=== PATIENT | male | born 1970 | race Caucasian/White ===

== ENCOUNTER 2020-01-05 00:03 | Outpatient (CLI) | payer BC, SELFPAY ==
[2020-01-05 18:00] LABS: SARS-CoV-2 RNA PCR Negative
== END 2020-01-05 00:04 | disposition home or self-care (01) ==
LOC: ANHCOVIDDT 00:03
PROVIDERS: PCP Nurse Practitioner Family; Visit Provider Internal Medicine Gastroenterology
DX: Z01.812 Encounter for preprocedural laboratory examination (principal); Z20.828 Contact with and (suspected) exposure to other viral communicable diseases
CPT/HCPCS: 87635; C9803; U0003

== ENCOUNTER 2020-01-08 00:48 | Day surgery (SDC) | payer BC, SELFPAY ==
[2020-01-01 09:58] VITALS: BMI 32.3
[2020-01-08 08:18] VITALS: BP 137/87; PULSE 74; RESP 18; TEMP 36.7; O2SAT 97
[2020-01-08] MEDS: LACTATED RINGERS 1,000 ML 150 ML IV CONT (08:39)
--- NOTE | 2020-01-08 08:48 | WPDANESEPPF ---
Anes - Initial Pre Proc Eval Procedure: Operation Date: 01/08/20 09:30 Proposed Procedures p Screening Colonoscopy - Ritesh Montanez MD Date/Time: 01/08/20 08:48 Surgeon: Ritesh Montanez MD Pre Op Diagnosis: neoplasm screening Patient Data Age: 49 Gender: M Height: 6 ft Weight: 108.3 kg Last Vital Signs Temp 36.7 C 01/08/20 08:18 Pulse 74 01/08/20 08:18 Resp 18 01/08/20 08:18 BP 137/87 01/08/20 08:18 Pulse Ox 97 01/08/20 08:18 Allergies Allergy/AdvReac Type Severity Reaction Status Date / Time No Known Allergies Allergy Verified 01/08/20 08:24 Home Medications Medication Instructions Recorded Confirmed Type etanercept 50 mg/mL (1 mL) 50 mg SUB-Q WEEKLY 09/10/19 01/08/20 History subcutaneous pen injector leflunomide 20 mg tablet 20 mg PO DAILY 09/10/19 01/08/20 History levothyroxine 100 mcg tablet 100 mcg PO DAILY 09/10/19 01/08/20 History valacyclovir 500 mg tablet 500 mg PO DAILY 09/10/19 01/08/20 History dextroamphetamine-amphetamine 20 20 mg PO BID #60 tablet 12/11/19 01/08/20 Rx mg tablet omeprazole 20 mg capsule,delayed 20 mg PO DAILY #30 cap 12/11/19 01/08/20 Rx release acetaminophen [Tylenol] 1,000 mg PO BID 01/01/20 01/08/20 History ibuprofen 800 mg PO BID 01/01/20 01/08/20 History multivit with min-folic acid 1 mg PO DAILY 01/01/20 01/08/20 History [Adult One Daily Multivitamin] peg 3350-electrolytes 236 240 ml PO Q10M #4000 ml 01/03/20 Rx gram-22.74 gram-6.74 gram-5.86 gram solution Patient hx anesthesia problems: none Family hx anesthesia problems: none PMFSH Past Medical History Medical History Crohn's disease Fatty liver Genital herpes in men History of [place] thyroiditis Prediabetes Psoriatic arthritis Rotator cuff arthropathy of right shoulder Umbilical hernia Surgical History Surgical History H/O vasectomy History of appendectomy Family History Family History Father Hypertension Mother Lung cancer Social History Social History Smoking status: Never smoker Alcohol intake: current Substance use: never Substance use type: does not use Gender identity (if verbalized by the patient): Male Anes - Eval Final PreProcedure Day of Procedure 01/08/20 08:48 Patient weight: obese Heart: regular rate and rhythm Lungs: clear to auscultation Airway: Mallampati scale class II Neurological: alert and oriented Last oral intake: >/= 8 hours ASA classification: III Emergent: no Anesthetic plan: proceed Anesthesia type and monitoring: general GIVS and standard monitoring Informed Consent: The patient's anesthetic plan and its attendant risks and benefits were discussed with the patient/family/POA. Questions were solicited and answers provided to the satisfaction of the patient/family/POA.
[2020-01-08 09:35] VITALS: BP 112/68; PULSE 78; RESP 15; O2SAT 97
--- NOTE | 2020-01-08 09:37 | PM.HPGS ---
History of Present Illness History of Present Illness Consent: Risks, benefits, and alternatives have been discussed and questions answered. Patient agrees to proceed with procedure. Chief complaint: neoplasm screening Narrative: Paul Vail is a 49 year old male he had a colonoscopy 10 years ago when had blood in stools and colitis. currently no symptoms. Review of Systems Constitutional: Constitutional: Denies headache(s) and Denies weakness Eyes: Eyes: Denies blurry vision ENT: Reports Normal hearing present, Denies headache(s) and Denies neck pain Cardiovascular: Cardiovascular: Denies chest pain and Denies dyspnea Respiratory: Respiratory: Denies dyspnea Gastrointestinal: Gastrointestinal: Reports no additional gastrointestinal complaints Genitourinary: Genitourinary: Denies dysuria Musculoskeletal: Musculoskeletal: Reports arthralgias Integumentary/Breasts: Skin/Breast: Denies dry skin Neurologic: Reports Normal hearing present, Denies headache(s) and Denies weakness Psychiatric: Psychiatric: Denies anxiety Endocrine: Endocrine: Denies change in body appearance Hematologic/Lymphatic: Hematologic/Lymphatic: Denies easy bleeding Allergic/Immunologic: Allergic/Immunologic: Denies urticaria PMFSH Past Medical History Medical History Crohn's disease Fatty liver Genital herpes in men History of [place] thyroiditis Prediabetes Psoriatic arthritis Rotator cuff arthropathy of right shoulder Umbilical hernia Surgical History Surgical History H/O vasectomy History of appendectomy Family History Family History Father Hypertension Mother Lung cancer Social History Social History Smoking status: Never smoker Alcohol intake: current Substance use: never Substance use type: does not use Gender identity (if verbalized by the patient): Male Meds Home Medications and Allergies Home Medications Medication Instructions Recorded Confirmed Type etanercept 50 mg/mL (1 mL) 50 mg SUB-Q WEEKLY 09/10/19 01/08/20 History subcutaneous pen injector leflunomide 20 mg tablet 20 mg PO DAILY 09/10/19 01/08/20 History levothyroxine 100 mcg tablet 100 mcg PO DAILY 09/10/19 01/08/20 History valacyclovir 500 mg tablet 500 mg PO DAILY 09/10/19 01/08/20 History dextroamphetamine-amphetamine 20 20 mg PO BID #60 tablet 12/11/19 01/08/20 Rx mg tablet omeprazole 20 mg capsule,delayed 20 mg PO DAILY #30 cap 12/11/19 01/08/20 Rx release acetaminophen [Tylenol] 1,000 mg PO BID 01/01/20 01/08/20 History ibuprofen 800 mg PO BID 01/01/20 01/08/20 History multivit with min-folic acid 1 mg PO DAILY 01/01/20 01/08/20 History [Adult One Daily Multivitamin] peg 3350-electrolytes 236 240 ml PO Q10M #4000 ml 01/03/20 Rx gram-22.74 gram-6.74 gram-5.86 gram solution Allergies Allergy/AdvReac Type Severity Reaction Status Date / Time No Known Allergies Allergy Verified 01/08/20 08:24 Vital Signs Vital Signs - 24 hr 01/08/20 08:18 Temperature 98.0 F Pulse Rate 74 Respiratory Rate 18 Blood Pressure 137/87 Pulse Oximetry 97 Exam Const: General: comfortable and no acute distress HENMT: General nose exam: Normal nares present Eyes: General: appearance normal, both eyes and all related structures Neck: Neck: no JVD Resp: Auscultation: clear to auscultation bilaterally Cardio: Rate: regular rate Rhythm: regular rhythm GI: Inspection: non-distended GI Palp: Yes Soft to palpation Skin: General skin exam: normal color Neuro: General: gait normal Speech: normal speech Extrem: General: normal to inspection Psych: Mental Status: mental status grossly normal Assessment and Plan Assessment and plan (1) Colon cancer screening:
[2020-01-08 09:45] VITALS: BP 120/76; PULSE 67; RESP 12; O2SAT 95
[2020-01-08 09:55] VITALS: BP 127/84; PULSE 63; RESP 12; O2SAT 97
== END 2020-01-08 10:10 | disposition home or self-care (01) ==
PROVIDERS: PCP Nurse Practitioner Family; Visit Provider Internal Medicine Gastroenterology
PROC: 0DJD8ZZ Inspection of Lower Intestinal Tract, Via Natural or Artificial Opening Endoscopic (ICD-10-PCS; CPT 45378; principal; 2020-01-08 09:30)
DX: Z12.11 Encounter for screening for malignant neoplasm of colon (principal); K64.0 First degree hemorrhoids; K76.0 Fatty (change of) liver, not elsewhere classified; L40.50 Arthropathic psoriasis, unspecified; K50.90 Crohn's disease, unspecified, without complications; R73.03 Prediabetes; B00.9 Herpesviral infection, unspecified; E66.9 Obesity, unspecified; Z68.32 Body mass index [BMI] 32.0-32.9, adult
CPT/HCPCS: 45378; J2001; J2704; J7120

== ENCOUNTER 2020-02-26 09:49 | Outpatient (CLI) | payer BC, SELFPAY ==
--- NOTE | 2020-02-26 09:58 | ECG_ITS ---
Measurements Intervals [place] Rate: 64 P: 6 MA: 169 QRS: -14 QRSD: 85 T: 9 QT: 378 QTc: 391 Interpretive Statements SINUS RHYTHM VOLTAGE CRITERIA FOR LVH ST ELEVATION IN ANTERIOR LEADS- PROBABLY EARLY REPOLARIZATION BORDERLINE T WAVE ABNORMALITY- INFERIOR LEADS BORDERLINE ECG Electronically Signed On 02-26-2020 10:49:49 CDT by Sachin Montejo D.O.
== END 2020-02-26 09:50 | disposition home or self-care (01) ==
PROVIDERS: PCP Nurse Practitioner Family; Visit Provider Nurse Practitioner Family
DX: R61 Generalized hyperhidrosis (principal); R94.31 Abnormal electrocardiogram [ECG] [EKG]
CPT/HCPCS: 93005

== ENCOUNTER 2020-03-24 16:19 | Outpatient (CLI) | payer BC, SELFPAY ==
--- NOTE | 2020-03-27 12:23 | WPDHOLTEREM ---
Holter/Event Monitor Holter/Event Monitor Date of procedure: 03/24/20 Procedure Type: 24 hour holter monitor Indications: Abnormal EKG Conclusion: 1. 24 hour holter monitor on 03/24/20. 2. Underlying rhythm is sinus rhythm. HR range 52-125 bpm; average HR 80 bpm. 3. There are 18 premature supraventricular complexes. No supraventricular tachycardia. 4. There are 24 premature ventricular complexes, 1 ventricular couplet and 1 ventricular triplet. No ventricular tachycardia. 5. No sinoatrial or atrioventricular blocks. No significant pauses greater than 2 seconds. 6. No symptoms available for correlation.
== END 2020-03-24 16:20 | disposition home or self-care (01) ==
PROVIDERS: PCP Nurse Practitioner Family; Visit Provider Nurse Practitioner Family
DX: R94.31 Abnormal electrocardiogram [ECG] [EKG] (principal)
CPT/HCPCS: 93225; 93226

== ENCOUNTER 2020-04-07 13:23 | Outpatient (CLI) | payer BC, SELFPAY ==
--- NOTE | 2020-04-07 13:43 | ECHO_ITS ---
Patient Info Name: Paul Vail Age: 49 years : 1970 Gender: Male Ht: 72 in Wt: 240 lbs BSA: 2.38 m2 HR: 73 bpm BP: 156 / 90 mmHg Technical Quality: Fair Exam Date: 04/07/2020 1:58 PM Exam Location: [facility] Patient Status: Outpatient Admit Date: 04/07/2020 Staff Ordering Physician: Sonal Andrew NP Shade Bander: Naomi Gee RDCS Attending Provider: Sonal Andrew NP Referring Physician: Kamran GREEN; Exam Type: CA echo doppler color flow Study Info Indications - abn ekg Complete two-dimensional, color flow and Doppler transthoracic echocardiogram is performed. Summary 1. Complete two-dimensional, color flow and Doppler transthoracic echocardiogram is performed. 2. Normal LV size, mild LVH, normal LV systolic function, EF 65-70%. Normal diastolic function. No significant valvular abnormality. Trivial TR, RVSP 32 mmHg. Left Ventricle Left ventricular chamber dimension is normal. Left ventricular systolic function is normal, estimated at 65-70%. There is mildly increased left ventricular wall thickness. Left ventricular septal wall motion is normal. The left ventricular diastolic function is normal. Right Ventricle Right ventricular chamber dimension is normal. Right ventricular systolic function is normal. Left Atria Left atrial chamber dimension is normal. Right Atria Right atrial chamber dimension is normal. Aortic Valve There is no aortic valve stenosis. There is no aortic valve regurgitation. Pulmonic Valve The pulmonic valve is normal. There is trace pulmonic regurgitation. Mitral Valve The mitral valve has normal leaflets. There is no mitral valve stenosis. There is no mitral valve regurgitation. Tricuspid Valve The tricuspid valve leaflets are normal. There is trace tricuspid valve regurgitation. No pulmonary hypertension, estimated pulmonary arterial systolic pressure is 32 mmHg. Pericardium/Pleural The pericardium appears normal. There is no pericardial effusion. Inferior Vena Cava Normal inferior vena cava with >50% collapse upon inspiration consistent with normal right atrial pressure, 10 mmHg. Aorta The aortic root size at the sinus of Valsalva is normal. The prox ascending aorta size is normal. Left Ventricular Outflow Tract Name Value Normal LVOT 2D LVOT Diameter 2.1 cm LVOT Doppler LVOT Peak Gradient 5 mmHg LVOT Mean Gradient 3 mmHg LVOT VTI 20 cm LVOT VTI/AV VTI Ratio 0.9 LVOT Stroke Volume 72 ml LVOT CO 17.0 l/min LVOT CI 7.1 l/min/m2 Pulmonic Valve Name Value Normal PV Doppler PV Peak Gradient 3 mmHg Klaus
== END 2020-04-07 13:24 | disposition home or self-care (01) ==
PROVIDERS: PCP Family Medicine; Visit Provider Nurse Practitioner Family
DX: R94.31 Abnormal electrocardiogram [ECG] [EKG] (principal)
CPT/HCPCS: 93306

== ENCOUNTER 2020-04-21 10:41 | Outpatient (CLI) | payer BC, SELFPAY ==
--- NOTE | 2020-04-21 10:48 | EST_ITS ---
Patient Info Name: Paul Vail Age: 49 years : 1970 Gender: Male Ht: 72 in Wt: 240 lbs BSA: 2.38 m2 Exam Date: 04/21/2020 11:26 AM Exam Location: [facility] Stress Patient Status: Outpatient Admit Date: 04/21/2020 Staff Ordering Physician: Sonal Andrew NP Attending Provider: SACHIN CAO DO Exercise Technologist: Hiral Bradley RDCS Exercise Physician: Sachin Cao DO Exam Type: CA stress test treadmill Study Info Indications I49.1 - Atrial premature depolarization I49.3 - Ventricular premature depolarization R94.31 - Abnormal electrocardiogram ECG EKG A treadmill exercise stress test was performed. Summary 1. 1. Negative Car exercise stress test for ischemic ST changes by ECG criteria. 2. 2. Good functional capacity, achieving 10 METs of workload. 3. 3. Appropriate HR response to exercise. 4. 4. Appropriate HR recovery at 1 minute post exercise. 5. 5. No imaging with stress testing. 6. 6. Patient informed of the above results. Protocol: Car Stress ECG Details Stage: REST Duration (min): 5 min : 22 sec Speed (mph): 0.0 Grade (%): 0 HR (bpm): 70 SBP (mmHg): 130 DBP (mmHg): 87 METS: --- Stage: REST Duration (min): 10 min : 30 sec Speed (mph): 0.0 Grade (%): 0 HR (bpm): 95 SBP (mmHg): 130 DBP (mmHg): 87 METS: --- Stage: STAGE 1 Duration (min): 1 min : 0 sec Speed (mph): 1.7 Grade (%): 10 HR (bpm): 105 SBP (mmHg): 130 DBP (mmHg): 87 METS: --- Stage: STAGE 1 Duration (min): 2 min : 0 sec Speed (mph): 1.7 Grade (%): 10 HR (bpm): 119 SBP (mmHg): 130 DBP (mmHg): 87 METS: --- Stage: STAGE 1 Duration (min): 3 min : 0 sec Speed (mph): 1.7 Grade (%): 10 HR (bpm): 116 SBP (mmHg): 174 DBP (mmHg): 85 METS: --- Stage: STAGE 2 Duration (min): 1 min : 0 sec Speed (mph): 2.5 Grade (%): 12 HR (bpm): 130 SBP (mmHg): 174 DBP (mmHg): 85 METS: --- Stage: STAGE 2 Duration (min): 2 min : 0 sec Speed (mph): 2.5 Grade (%): 12 HR (bpm): 142 SBP (mmHg): 193 DBP (mmHg): 83 METS: --- Stage: STAGE 2 Duration (min): 3 min : 0 sec Speed (mph): 2.5 Grade (%): 12 HR (bpm): 146 SBP (mmHg): 193 DBP (mmHg): 83 METS: --- Stage: STAGE 3 Duration (min): 1 min : 0 sec Speed (mph): 3.4 Grade (%): 14 HR (bpm): 157 SBP (mmHg): 206 DBP (mmHg): 85 METS: --- Stage: STAGE 3 Duration (min): 2 min : 0 sec Speed (mph): 3.4 Grade (%): 14 HR (bpm): 161 SBP (mmHg): 206 DBP (mmHg): 85 METS: --- Stage: STAGE 3 Duration (min): 3 min : 0 sec Speed (mph): 3.4 Grade (%): 14 HR (bpm): 164 SBP (mmHg): 211 DBP (mmHg): 84 METS: --- Stage: RECOVERY Duration (min): 0 min : 59 sec Speed (mph): 0.0 Grade (%): 0 HR (bpm): 149 SBP (mmHg): 204 DBP (mmHg): 76 METS: ---
== END 2020-04-21 10:42 | disposition home or self-care (01) ==
PROVIDERS: PCP Family Medicine; Visit Provider Nurse Practitioner Family
DX: I49.1 Atrial premature depolarization (principal); I49.3 Ventricular premature depolarization; R94.39 Abnormal result of other cardiovascular function study
CPT/HCPCS: 93017

== ENCOUNTER 2020-06-20 21:39 | Emergency (ER) | payer BC, SELFPAY ==
--- NOTE | ~2020-06-20 | XR_ITS ---
XR forearm LT 2V DATE: 06/20/2020 23:03 INDICATION: Dog bite of mid left forearm TECHNIQUE: AP and lateral views COMPARISON: None FINDINGS: No fracture or dislocation, periosteal reaction or bone destruction. No subcutaneous emphys dell or radiopaque foreign body. IMPRESSION: Negative Reviewed, dictated and finalized at location A. DIALYSIS IMPRESSION: Negative
[2020-06-20 21:47] VITALS: BP 142/82; PULSE 92; RESP 14; TEMP 36.8; O2SAT 98
--- NOTE | 2020-06-20 22:27 | PC.NURSE ---
pt. to room per w/c. Pt. arrived with boot on LE already and using crutches
--- NOTE | 2020-06-20 22:41 | ED.ANIMALBIT ---
HPI - Animal Bite General Chief Complaint: Animal Bite Stated Complaint: dog bite Time Seen by Provider: 06/20/20 22:28 Source: patient Mode of arrival: ambulatory Limitations: no limitations History of Present Illness HPI narrative: This patient is a 49 year old male left hand dominant who presents for evaluation of left arm pain s/p dog bite. He states he was trying to break up a fight between his 2 dogs. He has multiple puncture wounds to his left forearm. He also reports he has tingling to his hand and elbow since the injury. He has some swelling. He reports his last tetanus was September 2017. Related Data Home Medications Medication Instructions Recorded Confirmed etanercept 50 mg/mL (1 mL) 50 mg SUB-Q WEEKLY 09/10/19 03/31/20 subcutaneous pen injector leflunomide 20 mg tablet 20 mg PO DAILY 09/10/19 03/31/20 levothyroxine 100 mcg tablet 100 mcg PO DAILY 09/10/19 03/31/20 valacyclovir 500 mg tablet 500 mg PO DAILY 09/10/19 03/31/20 acetaminophen [Tylenol] 1,000 mg PO BID 01/01/20 03/31/20 ibuprofen 800 mg PO BID 01/01/20 03/31/20 multivit with min-folic acid 1 mg PO DAILY 01/01/20 03/31/20 [Adult One Daily Multivitamin] Allergies Allergy/AdvReac Type Severity Reaction Status Date / Time No Known Allergies Allergy Verified 03/31/20 10:05 Review of Systems Review of Systems: All systems reviewed & are unremarkable except as noted in HPI and below PMFSH Past Medical History Medical History (Updated 06/21/20 @ 00:16 by Maxine Serrano MD) Colon cancer screening Crohn's disease Fatty liver Genital herpes in men History of [place] thyroiditis Prediabetes Psoriatic arthritis Rotator cuff arthropathy of right shoulder Umbilical hernia Surgical History Surgical History H/O vasectomy History of appendectomy Family History Family History Father Hypertension Mother Lung cancer Social History Social History Smoking status: Never smoker Alcohol intake: current Substance use: never Substance use type: does not use Gender identity (if verbalized by the patient): Male Exam Const: General: no acute distress and alert Orientation/consciousness: patient oriented x3 HENMT: Head: atraumatic General nose exam: No nasal polyps present Face and sinus: face symmetric Eyes: EOM: EOMs intact bilaterally Resp: Effort & Inspection: normal respiratory effort Neuro: General: patient oriented x3 and moves all extremities Extrem: Other: left forearm with 4 puncture wounds, no bleeding, mild swelling to dorsum wrist. FROM, strong radial pulse Psych: Mental Status: mental status grossly normal Affect: normal affect Course Reevaluation(s) Reevaluation #1: I discussed with patient that he will be discharged home with antibiotics. He still reported pain so another pain pill given. His wounds were cleaned by nursing. Date: 06/21/20 Time: 00:12 Vital Signs Vital signs: Vital Signs Temperature 98.3 F 06/20/20 21:47 Pulse Rate 92 06/20/20 21:47 Respiratory Rate 14 06/20/20 21:47 Blood Pressure 142/82 H 06/20/20 21:47 Pulse Oximetry 98 06/20/20 21:47 Temperature 98.3 F 06/20/20 21:47 Pulse Rate 87 06/21/20 01:42 Respiratory Rate 18 06/21/20 01:42 Blood Pressure 139/82 06/21/20 01:42 Pulse Oximetry 97 06/21/20 01:42 MDM - Animal Bite Imaging Data Radiologist's impression: ITS Impressions Forearm X-Ray 06/20/20 23:10 IMPRESSION: Negative Discharge Plan Discharge Clinical Impression: Dog bite of multiple sites Patient Disposition: Home, Self-Care Condition: Stable Instructions: Antibiotic Form, Animal Bite (ED), Puncture Wound (ED) Additional Instructions: Today you were evaluated for dog bite. Apply ice to reduce s
[2020-06-20] MEDS: IBUPROFEN 400 MG TABLET 800 MG PO (22:58)
[2020-06-20] MEDS: HYDROcodone/acetaminophen (*CRX) 5-325 MG TABLET 1 TAB PO (22:58)
[2020-06-20] MEDS: ONDANSETRON HCL ODT 4 MG TABLET PO (22:58)
[2020-06-21] MEDS: HYDROcodone/acetaminophen (*CRX) 5-325 MG TABLET 1 TAB PO (00:30)
[2020-06-21] MEDS: AMOXICILLIN/CLAVULANATE K 875-125 MG TAB 1 TABLET PO (00:31)
[2020-06-21 01:42] VITALS: BP 139/82; PULSE 87; RESP 18; O2SAT 97
== END 2020-06-21 01:44 | disposition home or self-care (01) ==
PROVIDERS: Emergency Provider General Practice; PCP Family Medicine
DX: S51.852A Open bite of left forearm, initial encounter (principal); K50.90 Crohn's disease, unspecified, without complications; R73.03 Prediabetes; E06.3 Autoimmune thyroiditis; L40.50 Arthropathic psoriasis, unspecified; W54.0XXA Bitten by dog, initial encounter
CPT/HCPCS: 73090; 99283; A9270

== ENCOUNTER 2020-10-03 11:52 | Outpatient (CLI) | payer OTHER, BC, SELFPAY ==
[2020-10-03 13:25] LABS: Vitamin D 25 Hydroxy 37.4 ng/mL
== END 2020-10-03 11:53 | disposition home or self-care (01) ==
LOC: ANHLAB 11:57
PROVIDERS: PCP Family Medicine; Visit Provider Orthopaedic Surgery
DX: E55.9 Vitamin D deficiency, unspecified (principal)
CPT/HCPCS: 36415; 82306

== ENCOUNTER → 2020-10-25 01:16 | Outpatient (CLI) | payer BC, SELFPAY ==
[2020-10-25 19:13] LABS: SARS-CoV-2 RNA PCR Negative
== END ==
PROVIDERS: PCP Family Medicine; Visit Provider Internal Medicine Critical Care Medicine
DX: Z01.812 Encounter for preprocedural laboratory examination (principal); Z20.822 Contact with and (suspected) exposure to COVID-19
CPT/HCPCS: C9803; U0003; U0005

== ENCOUNTER 2020-10-28 07:46 | Outpatient (CLI) | payer BC, SELFPAY ==
--- NOTE | 2020-11-09 17:43 | WPDSLEEPSTUD ---
Sleep Study Ordering Provider: Goran Baptiste MD Interpreting Physician: Aramis Her MD Sleep Study Type: Split Polysomnogram Height: 1.83 m Weight: 109.769 kg Body Mass Index: 32.8 Neck Circumference (inches): 18 Pierce: 4 Reason for Sleep Study Patient has longstanding history of loud snoring which is quite disruptive. Patient tripped ports marked fatigue and lack of energy during daytime. He has comorbid conditions including hypertension, Crohn's disease, psoriatic arthritis for which he is taking biologic agents. Sleep History Loud disruptive snoring, fragmented sleep, non refreshing sleep and mild daytime sleepiness particularly when watching TV or lying down in the afternoon. COUNT INCLUDES THE [facility] Past Medical History Medical History Arthritis BMI 32.0-32.9,adult BMI 33.0-33.9,adult BMI 34.0-34.9,adult Colon cancer screening Crohn's disease Fatty liver Genital herpes in men History of [place] thyroiditis Hypothyroidism Metatarsal stress fracture of left foot Prediabetes Psoriasis Psoriatic arthritis Rotator cuff arthropathy of right shoulder Umbilical hernia Surgical History Surgical History H/O vasectomy History of appendectomy History of hernia repair History of right knee surgery History of shoulder surgery History of tonsillectomy Family History Family History Father Hypertension Cerebrovascular accident Mother Lung cancer COPD (chronic obstructive pulmonary disease) Emphysema of lung Sibling Hypertension Other Arthritis Asthma Diabetes mellitus Social History Social History 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.) Alcohol intake: current Substance use: never Substance use type: does not use Additional occupation/education comments: [employer] Gender identity (if verbalized by the patient): Male Medications Home Medications Medication Instructions Recorded Confirmed Type etanercept 50 mg/mL (1 mL) 50 mg SUB-Q WEEKLY 09/10/19 10/22/20 History subcutaneous pen injector leflunomide 20 mg tablet 20 mg PO DAILY 09/10/19 10/22/20 History levothyroxine 100 mcg tablet 100 mcg PO DAILY 09/10/19 10/22/20 History dextroamphetamine-amphetamine 20 20 mg PO BID #60 tablet 07/23/20 10/22/20 Rx mg tablet ibuprofen 800 mg tablet 800 mg PO TID PRN #60 tablet 07/23/20 10/22/20 Rx escitalopram oxalate 10 mg tablet 10 mg PO DAILY #90 tablet 09/12/20 10/22/20 Rx valacyclovir 500 mg tablet 500 mg PO DAILY #90 tablet 09/12/20 10/22/20 Rx amlodipine 10 mg tablet 10 mg PO DAILY #30 tablet 10/24/20 Rx nebivolol 2.5 mg tablet 2.5 mg PO DAILY #30 tablet 10/24/20 Rx omeprazole 20 mg capsule,delayed 20 mg PO DAILY #90 cap 11/03/20 Rx release Sleep Procedure Patient underwent overnight polysomnographic study using a split night protocol. Sleep Architecture Diagnostic study- Total recording time 192 minutes, total sleep time 142 minutes, sleep efficiency 74%. Sleep latency 13 minutes and there was no REM sleep. Awake after sleep onset 37 minutes, stage N1 5.4%, N2 76.3%, N3 0% and stage R 0%. Supine sleep 76%. Treatment study - Total recording time 277 minutes, total sleep time 251 minutes, sleep efficiency 90.7%. Sleep latency 4 minutes, REM latency 24 minutes. Relatively early appearance of REM sleep is suggestive of improved sleep quality. Awake after sleep onset 21 minutes, stage N1 5.4%, N2 76.3%, N3 0%, stage R 18.3%. Supine sleep 65.3%, supine REM sleep 10.7%. Respiratory Analysis AASM criteria used. Diagnostic study - patient had 2 apneas, 1 obstructive and 1 central. Apnea index 0.8. Patient also had 19 hypopneas with index 8.0. AHI 8.9. Supine index 8.9, n
[2020-11-09 18:01] VITALS: BMI 32.8
== END 2020-10-28 07:47 | disposition home or self-care (01) ==
LOC: ANHCSM 07:46
PROVIDERS: PCP Family Medicine; Visit Provider Family Medicine
DX: G47.00 Insomnia, unspecified (principal); G47.33 Obstructive sleep apnea (adult) (pediatric)
CPT/HCPCS: 95811

== ENCOUNTER 2020-11-27 08:39 | Outpatient (CLI) | payer OTHER, BC, SELFPAY ==
--- NOTE | ~2020-11-27 | CT_ITS ---
EXAMINATION: CT foot LT wo con DATE: 11/27/2020 09:06 INDICATION: Left foot stress fracture, subsequent encounter. TECHNIQUE: Computed tomography (CT) of the left foot was performed without intravenous contrast. Auto mated exposure control and iterative reconstruction technique were employed. The dose-length product was 334.47 mGy-cm. COMPARISON: Left foot radiographs 11/19/2020, 07/23/2020 FINDINGS: There is moderate hallux valgus. There is an oblique fracture of proximal diaphysis of four th metatarsal with nonbridging callus. The distal fracture fragment demonstrates 9 degrees dorsal ang ulation. There is ankylosis of second proximal interphalangeal joint. There is moderate osteoarthriti s of second distal interphalangeal joint and first metatarsophalangeal joint. There are enthesophytes at the posterior and plantar aspects of calcaneal tuberosity. IMPRESSION: 1. Oblique fracture of proximal diaphysis of fourth metatarsal with nonbridging callus. Reviewed, dictated and finalized at location B.
== END 2020-11-27 08:40 | disposition home or self-care (01) ==
LOC: ANHIMG 08:47
PROVIDERS: PCP Family Medicine; Visit Provider Orthopaedic Surgery
DX: M84.375G Stress fracture, left foot, subsequent encounter for fracture with delayed healing (principal)
CPT/HCPCS: 73700

== ENCOUNTER → 2021-03-23 03:55 | Outpatient (CLI) | payer OTHER, SELFPAY ==
[2021-03-23 18:30] LABS: SARS-CoV-2 RNA PCR Positive
== END ==
PROVIDERS: PCP Family Medicine; Visit Provider Orthopaedic Surgery
DX: U07.1 COVID-19 (principal)
CPT/HCPCS: C9803; U0003; U0005

== ENCOUNTER 2021-04-15 15:01 | Outpatient (CLI) | payer BC, SELFPAY ==
--- NOTE | ~2021-04-15 | XR_ITS ---
EXAMINATION: XR chest 2V DATE: 04/15/2021 15:32 INDICATION: Shortness of breath, COVID 19 TECHNIQUE: PA and lateral views of the chest are obtained. COMPARISON: None available FINDINGS: Patchy airspace opacities are present throughout all lung zones. There is no pleural effusi on or pneumothorax. The cardiomediastinal silhouette is normal. There is mild thoracic spondylosis. IMPRESSION: 1. Patchy bilateral airspace opacities, likely pneumonia. Reviewed, dictated and finalized at location B.
== END 2021-04-15 15:02 | disposition home or self-care (01) ==
PROVIDERS: PCP Family Medicine; Visit Provider Nurse Practitioner Family
DX: R91.8 Other nonspecific abnormal finding of lung field (principal); R06.02 Shortness of breath; Z86.16 Personal history of COVID-19
CPT/HCPCS: 71046

== ENCOUNTER 2021-04-27 12:00 | Outpatient (CLI) | payer BC, SELFPAY ==
--- NOTE | ~2021-04-27 | CT_ITS ---
EXAMINATION: CTA chest PE protocol DATE: 04/27/2021 12:42 CDT INDICATION: Covid19. Dyspnea. TECHNIQUE: Computed tomographic angiography (CTA) of the chest was performed with 100 mL Omnipaque-35 0 intravenous contrast. The dose-length product was 722.98 mGy-cm. Maximum intensity projection 3D-re constructions of the aorta and other arteries were constructed by the technologist on a separate work station. Automated exposure control and iterative reconstruction technique were employed. COMPARISON: Chest x-ray dated 04/15/2021. FINDINGS: Study is technically adequate. There is filling defect in right upper lobe segmental pulmon carson artery, consistent with pulmonary embolism, small thrombus burden. Cardiomegaly. No significant p leural or pericardial effusion. There is hiatal hernia. There is extensive patchy bilateral groundgla ss opacification throughout both lungs, compatible with pneumonia. No endobronchial lesions. Mild med iastinal lymphadenopathy, likely reactive. There is hepatic steatosis. IMPRESSION: 1. Filling defect right upper lobe segmental pulmonary artery, consistent with pulmonary embolism, sm all thrombus burden. 2: Extensive patchy bilateral groundglass opacification lungs, compatible with known pneumonia. 3: Cardiomegaly. 4: Mild mediastinal lymphadenopathy, likely reactive. Reviewed, dictated and finalized at location A. IMPRESSION: 1. Filling defect right upper lobe segmental pulmonary artery, consistent with pulmonary embolism, small thrombus burden. 2: Extensive patchy bilateral groundglass opacification lungs, compatible with known pneumonia. 3: Cardiomegaly. 4: Mild mediastinal lymphadenopathy, likely reactive.
[2021-04-27 12:28] LABS: Estimated Glomerular Filt Rate > 60
--- NOTE | 2021-04-27 13:10 | ECG_ITS ---
Measurements Intervals [place] Rate: 80 P: 11 WI: 169 QRS: -18 QRSD: 82 T: -6 QT: 344 QTc: 397 Interpretive Statements SINUS RHYTHM EARLY PRECORDIAL R/S TRANSITION VOLTAGE CRITERIA FOR LVH BORDERLINE T WAVE ABNORMALITY- INFERIOR LEADS BORDERLINE ECG Electronically Signed On 04-27-2021 13:22:50 CDT by Sachin Montejo D.O.
[2021-04-27 13:46] LABS: Basophils Absolute Auto 0.1 K/mm3 (0.0-0.1); Basophils Percent Auto 0.8 % (0.2-1.2); Eosinophils Absolute Auto 0.2 K/mm3 (0-0.3); Eosinophils Percent Auto 2.1 % (0-4.4); Hematocrit 44.4 % (42.0-52.0); Hemoglobin 14.3 g/dL (14.0-18.0); Immature Granulocyte Absolute 0.06 K/mm3 (0.00-0.031); Immature Granulocyte Percent A 0.8 % (0-0.5); Lymphocytes Absolute Auto 1.87 K/mm3 (0.9-3.2); Lymphocytes Percent Auto 24.8 % (18.3-44.2); Mean Corpuscular HGB Conc 32.2 g/dl (32-36); Mean Corpuscular Hemoglobin 28.5 pg (26-34); Mean Corpuscular Volume 88.4 fl (80-100); Mean Platelet Volume 10.1 fl (7.4-10.4); Monocytes Absolute Auto 0.7 K/mm3 (0.1-0.6); Monocytes Percent Auto 8.6 % (2.6-8.5); Neutrophils Absolute Auto 4.8 K/mm3 (1.3-6.7); Neutrophils Percent Auto 62.9 % (45.5-73.1); Platelet Count Result 252 k/mm3 (150-375); Red Blood Count 5.02 M/mm3 (4.6-6.20); Red Cell Distribution Width 14.1 % (11.5-14.5); White Blood Count 7.6 K/mm3 (4.5-10.0)
[2021-04-27 14:01] LABS: Alanine Aminotransferase 147 U/L (4-50); Albumin Level 4.7 g/dL (3.5-5.1); Alkaline Phosphatase 125 U/L (38-126); Anion Gap 11 mmol/L (8-16); Aspartate Amino Transferase 69 U/L (17-59); Bilirubin,Total 0.5 mg/dL (0.2-1.3); Blood Urea Nitrogen 15 mg/dL (9-20); Calcium 9.9 mg/dL (8.4-10.2); Carbon Dioxide 27 mmol/L (22-30); Chloride 101 mmol/L (98-107); Estimated Glomerular Filt Rate > 60; Glucose 175 mg/dL (65-110); Potassium 4.3 mmol/L (3.4-5.0); Sodium 139 mmol/L (137-145)
[2021-04-27 14:02] LABS: D Dimer 0.76 ug/mL (<0.48)
== END 2021-04-27 12:01 | disposition home or self-care (01) ==
LOC: ANHIMG 12:02
PROVIDERS: PCP Family Medicine; Visit Provider Nurse Practitioner Family
DX: U07.1 COVID-19 (principal); J12.82 Pneumonia due to coronavirus disease 2019; R94.31 Abnormal electrocardiogram [ECG] [EKG]; I51.7 Cardiomegaly; R91.8 Other nonspecific abnormal finding of lung field
CPT/HCPCS: 71275; 80053; 85025; 85380; 93005; Q9967

== ENCOUNTER 2021-05-02 15:58 | Emergency (ER) | payer BC, SELFPAY ==
--- NOTE | ~2021-05-02 | XR_ITS ---
EXAMINATION: XR chest 2V DATE: 05/02/2021 16:23 INDICATION: Chest pain TECHNIQUE: PA and lateral views of the chest were obtained. COMPARISON: Chest radiograph dated 04/15/2021 FINDINGS: Slight decrease in the previous noted streaky and patchy airspace opacities in the bilateral mid and lower lung zones. No pleural effusion or pneumothorax. Cardiomegaly. Mild thoracic spondylosis. IMPRESSION: 1. Slight improvement in opacities in the bilateral mid and lower lung zones consistent with improvin g pneumonia and/or pulmonary edema. 2. Cardiomegaly. Reviewed, dictated and finalized at location A. IMPRESSION: 1. Slight improvement in opacities in the bilateral mid and lower lung zones co nsistent with improving pneumonia and/or pulmonary edema. 2. Cardiomegaly.
--- NOTE | ~2021-05-02 | CT_ITS ---
EXAMINATION: CTA chest PE protocol DATE: 05/02/2021 20:20 INDICATION: Chest pain and shortness of breath TECHNIQUE: Computed tomography (CT) pulmonary angiogram of the chest was performed with 100 mL Omnipa que-350 intravenous contrast. Additional 3D reconstructions utilizing coronal maximum intensity proje ction (MIP) were performed. The dose-length product was 854.45 mGy-cm. COMPARISON: None FINDINGS: Excellent contrast opacification of the pulmonary arteries. There is mild streak artifact from dense contrast in the superior vena cava and right atrium. Mild scattered respiratory motion artifact which only minimally decreases sensitivity in some of the smaller subsegmental pulmonary arteries. No pulm onary embolism. Interval improvement in prior patchy groundglass opacities throughout both lungs with peripheral and lower lung predominance likely related to COVID pneumonia. No pleural effusion or pne umothorax. Heart size is normal. Atherosclerotic coronary artery calcific location. No pericardial ef fusion. Thoracic aorta is normal in caliber with no dissection. No pathologically enlarged thoracic l ymphadenopathy. Small sliding-type hiatal hernia. Diffuse hepatic steatosis. Mild thoracic spondylosi s. IMPRESSION: 1. No pulmonary embolism. 2. Interval decrease in diffuse bilateral lung disease consistent with improving COVID pneumonia. 3. Diffuse hepatic steatosis. 4. Small sliding-type hiatal hernia. Reviewed, dictated and finalized at location A. IMPRESSION: 1. No pulmonary embolism. 2. Interval decrease in diffuse bilateral lung disease consistent with improvin g COVID pneumonia. 3. Diffuse hepatic steatosis. 4. Small sliding-type hiatal hernia.
--- NOTE | 2021-05-02 15:59 | ECG_ITS ---
Measurements Intervals [place] Rate: 94 P: 8 LA: 161 QRS: -17 QRSD: 85 T: 3 QT: 330 QTc: 414 Interpretive Statements SINUS RHYTHM VOLTAGE CRITERIA FOR LVH BORDERLINE T WAVE ABNORMALITY- INFERIOR LEADS BORDERLINE ECG Electronically Signed On 05-02-2021 18:43:06 CDT by Sachin Montejo D.O.
[2021-05-02 16:00] VITALS: BP 137/81; PULSE 90; RESP 18; TEMP 36.1; O2SAT 98
[2021-05-02 16:18] LABS: Basophils Absolute Auto 0.1 K/mm3 (0.0-0.1); Basophils Percent Auto 0.8 % (0.2-1.2); Eosinophils Absolute Auto 0.1 K/mm3 (0-0.3); Eosinophils Percent Auto 1.3 % (0-4.4); Hematocrit 42.8 % (42.0-52.0); Hemoglobin 14.1 g/dL (14.0-18.0); Immature Granulocyte Absolute 0.05 K/mm3 (0.00-0.031); Immature Granulocyte Percent A 0.6 % (0-0.5); Lymphocytes Absolute Auto 2.15 K/mm3 (0.9-3.2); Lymphocytes Percent Auto 27.1 % (18.3-44.2); Mean Corpuscular HGB Conc 32.9 g/dl (32-36); Mean Corpuscular Volume 88.1 fl (80-100); Mean Platelet Volume 10.4 fl (7.4-10.4); Monocytes Absolute Auto 0.8 K/mm3 (0.1-0.6); Monocytes Percent Auto 10.1 % (2.6-8.5); Neutrophils Absolute Auto 4.8 K/mm3 (1.3-6.7); Neutrophils Percent Auto 60.1 % (45.5-73.1); Platelet Count Result 298 k/mm3 (150-375); Red Blood Count 4.86 M/mm3 (4.6-6.20); Red Cell Distribution Width 13.9 % (11.5-14.5); White Blood Count 7.9 K/mm3 (4.5-10.0)
[2021-05-02 16:28] LABS: Anion Gap 10 mmol/L (8-16); Blood Urea Nitrogen 10 mg/dL (9-20); Calcium 9.1 mg/dL (8.4-10.2); Carbon Dioxide 25 mmol/L (22-30); Chloride 102 mmol/L (98-107); Estimated CRCL calculation 164 ml/min; Estimated Glomerular Filt Rate > 60; Glucose 244 mg/dL (65-110); Potassium 3.9 mmol/L (3.4-5.0); Sodium 137 mmol/L (137-145)
[2021-05-02 16:31] LABS: Partial Thromboplastin Time 33.1 SECONDS (22.3-36.8)
[2021-05-02 16:40] LABS: Troponin I < 0.012 ng/mL (0.000-0.034)
[2021-05-02 17:00] LABS: INR 1.6; Prothrombin Time 18.6 Seconds (11.1-14.7)
--- NOTE | 2021-05-02 20:11 | PC.NURSE ---
Patient taken to CT.
[2021-05-02] MEDS: ACETAMINOPHEN 325 MG TABLET 650 MG PO (21:19)
[2021-05-02 21:22] VITALS: O2SAT 97
[2021-05-02 21:23] VITALS: BP 135/93; PULSE 79; RESP 18; O2SAT 97
--- NOTE | 2021-05-02 21:33 | ED.GENADULT ---
HPI - General Adult General Chief complaint: Chest Pain Stated complaint: chest pain Time Seen by Provider: 05/02/21 19:36 History of Present Illness HPI narrative: Patient is a 50-year-old male who presents ER with chest pain. Began this afternoon and it was central moving to the right side and has improved. Occurred while he was at rest. Was recently diagnosed with pulmonary embolism and started on Xarelto. He is taking 15 mg daily. No lower extremity swelling or cramping. He is O2 dependent, 2 L nasal cannula, as a result of Covid pneumonia and may require pneumonia. He has been on azithromycin and Levaquin recently. No fevers or chills or sweats. Still has exertional shortness of breath. Related Data Home Medications Medication Instructions Recorded Confirmed etanercept 50 mg/mL (1 mL) 50 mg SUB-Q WEEKLY 09/10/19 04/27/21 subcutaneous pen injector leflunomide 20 mg tablet 20 mg PO DAILY 09/10/19 04/27/21 sitagliptin 100 mg tablet 100 mg PO DAILY 04/08/21 04/27/21 Saccharomyces boulardii 250 mg 250 mg PO BID cap 04/27/21 04/27/21 capsule Allergies Allergy/AdvReac Type Severity Reaction Status Date / Time No Known Allergies Allergy Verified 04/27/21 09:54 Review of Systems Review of Systems: All systems reviewed & are unremarkable except as noted in HPI and below Constitutional: Constitutional: Denies chills, Reports fatigue and Denies fever(s) ENT: Denies nasal congestion and Denies sore throat Cardiovascular: Cardiovascular: Reports chest pain, Denies rapid heart rate and Denies radiating jaw, neck or arm pain Respiratory: Respiratory: Denies cough, Reports dyspnea and Denies wheezing Gastrointestinal: Gastrointestinal: Denies abdominal pain, Denies nausea and Denies vomiting [facility] Past Medical History Medical History (Updated 05/02/21 @ 21:41 by Owen Franco MD) Arthritis BMI 32.0-32.9,adult BMI 33.0-33.9,adult BMI 34.0-34.9,adult BMI over 35 Colon cancer screening Crohn's disease Fatty liver Genital herpes in men History of [place] thyroiditis Hypothyroidism Metatarsal bone fracture Metatarsal stress fracture of left foot Prediabetes Psoriasis Psoriatic arthritis Pulmonary embolism Rotator cuff arthropathy of right shoulder Umbilical hernia Surgical History Surgical History H/O vasectomy History of appendectomy History of hernia repair History of right knee surgery History of shoulder surgery History of tonsillectomy Family History Family History Father Hypertension Cerebrovascular accident Mother Lung cancer COPD (chronic obstructive pulmonary disease) Emphysema of lung Sibling Hypertension Other Arthritis Asthma Diabetes mellitus Social History Social History 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 HEAD: Normocephalic, atraumatic. ENT: Mucous membranes moist. CHEST: Clear to auscultation. No respiratory distress. HEART: Regular rate and rhythm. Normal peripheral pulses. ABDOMEN: Soft, nontender, nondistended. EXTREMITIES: Normal range of motion. No edema. SKIN: Warm, dry, no rash. NEURO: Alert and oriented x3. Course Course Emergency Course: Patient informed of results. Discussed case with Allyn the nurse practitioner Dr. Matamoros's office. We will increase patient's Xarelto to 50 mg twice a day. He has follow-up early in the week and they will figure out any additional prescriptio
[2021-05-02 21:55] VITALS: BP 134/97; PULSE 73; RESP 18; O2SAT 96
== END 2021-05-02 21:55 | disposition home or self-care (01) ==
PROVIDERS: Emergency Medicine; Emergency Provider Emergency Medicine; PCP Family Medicine
DX: R07.89 Other chest pain (principal); U07.1 COVID-19; J12.82 Pneumonia due to coronavirus disease 2019; K50.90 Crohn's disease, unspecified, without complications; E06.3 Autoimmune thyroiditis; R73.03 Prediabetes; L40.50 Arthropathic psoriasis, unspecified; M19.90 Unspecified osteoarthritis, unspecified site; Z86.711 Personal history of pulmonary embolism; I51.7 Cardiomegaly; Z77.22 Contact with and (suspected) exposure to environmental tobacco smoke (acute) (chronic); Z79.01 Long term (current) use of anticoagulants; K44.9 Diaphragmatic hernia without obstruction or gangrene; K76.0 Fatty (change of) liver, not elsewhere classified; Z99.81 Dependence on supplemental oxygen
CPT/HCPCS: 36415; 71046; 71275; 80048; 84484; 85025; 85610; 85730; 93005; 99284; A9270; Q9967

== ENCOUNTER 2021-05-14 14:43 | Outpatient (CLI) | payer BC, SELFPAY ==
--- NOTE | 2021-05-14 14:51 | ECHO_ITS ---
Patient Info Name: Paul Vail Age: 50 years : 1970 Gender: Male Ht: 72 in Wt: 246 lbs BSA: 2.41 m2 HR: 78 bpm BP: 149 / 87 mmHg Technical Quality: Fair Exam Date: 05/14/2021 3:08 PM Exam Location[facility] Patient Status: Outpatient Admit Date: 05/14/2021 Staff Ordering Physician: Sonal Andrew NP Stereotype Molder: Naomi Gee RDCS Attending Provider: Sonal Andrew NP Referring Physician: Kamran GREEN; Exam Type: CA echo doppler color flow Study Info Indications - on cont 02 - cardiomegaly Complete two-dimensional, color flow and Doppler transthoracic echocardiogram is performed. Summary 1. Complete two-dimensional, color flow and Doppler transthoracic echocardiogram is performed. 2. Left ventricular chamber dimension is normal. 3. Left ventricular systolic function is normal, estimated at 60-65%. 4. There is mildly increased left ventricular wall thickness. 5. The left ventricular diastolic function is grade I diastolic dysfunction. 6. Global longitudinal strain is abnormal at -13.9%. 7. No pulmonary hypertension, estimated pulmonary arterial systolic pressure is 24 mmHg. 8. There is trace pulmonic regurgitation. Left Ventricle Tissue doppler is not performed. Global longitudinal strain is abnormal at -13.9%. Left ventricular chamber dimension is normal. Left ventricular systolic function is normal, estimated at 60-65%. There is mildly increased left ventricular wall thickness. The left ventricular diastolic function is grade I diastolic dysfunction. Right Ventricle Right ventricular chamber dimension is normal. Right ventricular systolic function is normal. Left Atria Left atrial chamber dimension is normal. Right Atria Right atrial chamber dimension is normal. Aortic Valve The aortic valve is trileaflet. There is no aortic valve stenosis. There is no aortic valve regurgitation. Pulmonic Valve There is trace pulmonic regurgitation. Mitral Valve There is no mitral valve stenosis. There is no mitral valve regurgitation. Tricuspid Valve There is no tricuspid valve regurgitation. No pulmonary hypertension, estimated pulmonary arterial systolic pressure is 24 mmHg. Pericardium/Pleural There is no pericardial effusion. Inferior Vena Cava Normal inferior vena cava with >50% collapse upon inspiration consistent with normal right atrial pressure, 5 mmHg. Aorta The aortic root size at the sinus of Valsalva is normal. Left Ventricular Outflow Tract Name Value Normal LVOT 2D LVOT Diameter 2.2 cm LVOT Doppler LVOT Peak Gradient 3 mmHg LVOT Mean Gradient 2 mmHg LVOT VTI 15 cm LVOT VTI/AV VTI Ratio 0.8 LVOT Stroke Volume 57 ml LVOT CO 14.4 l/min LVOT CI 6.0 l/min/m2 Pulmonic Valve Name Value Normal
== END 2021-05-14 14:44 | disposition home or self-care (01) ==
LOC: ANHCARD 14:44
PROVIDERS: PCP Family Medicine; Visit Provider Nurse Practitioner Family
DX: I51.7 Cardiomegaly (principal); R93.1 Abnormal findings on diagnostic imaging of heart and coronary circulation
CPT/HCPCS: 93306

== ENCOUNTER → 2021-07-17 03:44 | Outpatient (CLI) | payer OTHER, SELFPAY ==
[2021-07-17 19:26] LABS: SARS-CoV-2 RNA PCR Negative
== END ==
PROVIDERS: PCP Family Medicine; Visit Provider Orthopaedic Surgery
DX: Z01.812 Encounter for preprocedural laboratory examination (principal); Z20.822 Contact with and (suspected) exposure to COVID-19
CPT/HCPCS: C9803; U0003; U0005

== ENCOUNTER 2021-07-17 08:06 | Outpatient (CLI) | payer OTHER, SELFPAY ==
[2021-07-17 09:15] LABS: Anion Gap 9 mmol/L (8-16); Blood Urea Nitrogen 14 mg/dL (9-20); Calcium 9.4 mg/dL (8.4-10.2); Carbon Dioxide 29 mmol/L (22-30); Chloride 98 mmol/L (98-107); Estimated Glomerular Filt Rate > 60; Glucose 185 mg/dL (65-110); Potassium 3.8 mmol/L (3.4-5.0); Sodium 136 mmol/L (137-145)
== END 2021-07-17 08:07 | disposition home or self-care (01) ==
PROVIDERS: Anesthesiology; PCP Family Medicine; Visit Provider Orthopaedic Surgery
DX: E11.69 Type 2 diabetes mellitus with other specified complication (principal); Z01.818 Encounter for other preprocedural examination
CPT/HCPCS: 36415; 80048

== ENCOUNTER 2021-07-17 08:15 | Outpatient (CLI) | payer BC, SELFPAY ==
[2021-07-17 09:14] LABS: Alanine Aminotransferase 100 U/L (4-50); Albumin Level 4.7 g/dL (3.5-5.1); Alkaline Phosphatase 83 U/L (38-126); Aspartate Amino Transferase 79 U/L (17-59); Bilirubin,Total 0.7 mg/dL (0.2-1.3)
== END 2021-07-17 08:16 | disposition home or self-care (01) ==
LOC: ANHLAB 08:17
PROVIDERS: PCP Family Medicine; Visit Provider Nurse Practitioner Family
DX: R74.01 Elevation of levels of liver transaminase levels (principal)
CPT/HCPCS: 36415; 80076

== ENCOUNTER 2021-07-20 00:28 | Day surgery (SDC) | payer OTHER, SELFPAY ==
[2021-07-13 12:53] VITALS: BMI 34.2
--- NOTE | 2021-07-13 13:02 | PC.NURSE ---
Report to the Outpatient Waiting Room, entrance under the green pavilion located off [facility], at time 0600 on date ___07/20/21____. OR Time: __729 . - You and your visitor will be asked a series of questions to screen for COVID 19 for your protection. - A mask is required within the hospital. - Only one visitor is allowed at this time. Patient visitors will be guided where to wait when not with patient. Preoperative COVID Testing Requirements: No COVID Test needed if: (proof is required; if not received patient will have Rapid Test prior to entry) - Patient has received COVID Vaccine at least 14 days prior to procedure date or - Patient has positive COVID test result within last 90 days of surgery date. COVID TESTING 07/17/21 AT 0800 COVID Test needed if above criteria is not met If not COVID vaccinated a COVID test must be conducted within 72 hours of surgery and patient is asked to isolate self from time of testing until procedure. You will go to the [facility] for your COVID testing. The [facility] is located at the corner of [address] [facility]. You will only be called if COVID results are positive and your surgeon may reschedule your elective surgery date. Patients may have clear liquids (water, carbonated beverages, clear teas, apple juice) until 3 hours prior to surgery with a maximum of 20 ounces. - No food from midnight until time of surgery - Infants may have breast milk until 4 hours before surgery, formula 6 hours prior to surgery. - Children will be allowed to drink immediately following surgery. If applicable, please bring a bottle or sippy cup to assist with drinking. Juice, water, soda, and popsicles are readily available. For infants on formula, please bring formula the day of surgery. Pacifiers are allowed. Take the following medications with a SIP of water the morning of surgery: __AMLODIPINE,ESCITALOPRAM,LEVOTHYROXINE,NEBIVOLOL Medications to discontinue per physicianPT STATES LEFLUNOMIDE 7 DAYS PRE OP AND XARELTO 3 DAYS PRE OP PER DR VU Date to take last dose Please no make-up, nail nicaraguan, hairspray, perfume, deodorant, or body powder the day of surgery. No jewelry (including any body piercings) or valuables the day of surgery, leave them at home. Please take a shower or bath the night before, or the morning of, surgery with an antibacterial soap. Wear comfortable, loose fitting clothing. Children are encouraged to wear pajamas. - Jewelry must be removed prior to entering the operating room. Rings and piercings that are not removed may be cut off. - The hospital will not accept responsibility for valuables. - Please leave all valuables, including medications, at home the day of surgery. If you are going home after surgery, a licensed driver sales must drive you home. - NO public transportation without another adult. - We recommend that an adult stay with you for 24 hours following discharge. - We also recommend that you do not drive, make important decision, drink alcoholic beverages, or take any drugs that were not prescribed by your health care provider for at least 24 hours after your discharge time. For Pediatric surgeries, we recommend two adults accompany the child home (only one inside the building at this time). Follow any additional instructions given to you from your surgeon. Telephone instructions given to _PATIENT and asked if any additional questions and then verbalized understanding. Patient advised to call surgeon office or pre surgery nurse liaison [phone] if any additional questions.
[2021-07-20] VITALS (12 sets, daily range): BP systolic 97–141; BP diastolic 60–90; PULSE 77–95; RESP 12–20; TEMP 36.3–36.7; O2SAT 92–100
--- NOTE | ~2021-07-20 | XR_ITS ---
EXAMINATION: XR surgery orthopedic EXAM DATE: 07/20/2021 09:17 INDICATION: ORIF LT 4TH Metatarsal FX . TECHNIQUE: Fluoroscopy used during XR surgery orthopedic performed by Dr. Sumit Leon MD. Rad iologist was not present for the imaging or procedure. Total fluoroscopic time of 19 seconds. The D AP for this procedure was 1.7 cGycm2. A total of 5 images sent to PACS from the exam. There is no p rior study for comparison. FINDINGS: Appearance on prior x-ray suggests 4th metatarsal fracture suggests delayed union, clinica l correlation. These images demonstrate right 4th metatarsal orthopedic plate with supporting screws bridging the fracture. Correlate with procedure note. IMPRESSION: Fluoroscopy used during right 4th metatarsal ORIF. Reviewed, dictated and finalized at location B. BOND AGENT
[2021-07-20] MEDS: LACTATED RINGERS 1,000 ML 30 ML IV CONT ×2 (06:42→09:13)
[2021-07-20] MEDS: ACETAMINOPHEN 500 MG TABLET 1000 MG PO (06:43)
[2021-07-20] MEDS: KETOROLAC 15 MG/ML VIAL (*BKC) IV PUSH (06:43)
[2021-07-20 06:50] LABS: Glucose Point of Care 150 mg/dl (65-105)
--- NOTE | 2021-07-20 06:56 | WPDANESEPPF ---
Anes - Initial Pre Proc Eval Procedure: Operation Date: 07/20/21 07:30 Proposed Procedures p Open Reduction Internal Fixation Left Fourth Metatarsal Fracture with Bone Graft Left Hip, with Aspiration of Right Foot Cyst - Sumit Leon MD Date/Time: 07/20/21 06:56 Surgeon: Sumit Leon MD Pre Op Diagnosis: left foot 4th metatarsal fracture non union Patient Data Age: 51 Gender: M Height: 1.83 m Weight: 114.35 kg Allergies Allergy/AdvReac Type Severity Reaction Status Date / Time No Known Allergies Allergy Verified 07/13/21 15:22 Home Medications Medication Instructions Recorded Confirmed Type etanercept 50 mg/mL (1 mL) 50 mg SUB-Q WEEKLY 09/10/19 07/13/21 History subcutaneous pen injector leflunomide 20 mg tablet 20 mg PO DAILY 09/10/19 07/13/21 History omeprazole 20 mg capsule,delayed 20 mg PO DAILY #90 cap 11/03/20 07/13/21 Rx release methylphenidate HCl 18 mg 18 mg PO QAM #1 tablet 01/12/21 07/13/21 Rx tablet,extended release 24 hr valacyclovir 500 mg tablet 500 mg PO DAILY #90 tablet 02/23/21 07/13/21 Rx Saccharomyces boulardii 250 mg 250 mg PO BID cap 04/27/21 07/13/21 History capsule rivaroxaban 20 mg tablet 20 mg PO DAILY #90 tablet 04/30/21 07/13/21 Rx amlodipine 10 mg tablet 10 mg PO DAILY #90 tablet 05/06/21 07/13/21 Rx sitagliptin 100 mg tablet 100 mg PO DAILY #90 tablet 05/06/21 07/13/21 Rx nebivolol 2.5 mg tablet 2.5 mg PO DAILY #90 tablet 06/02/21 07/13/21 Rx escitalopram oxalate 20 mg tablet See Rx Instructions .ROUTE 06/08/21 07/13/21 History .COMPLEX tablet levothyroxine 100 mcg tablet 100 mcg PO DAILY #90 tablet 06/22/21 07/13/21 Rx metformin 500 mg tablet,extended 1,000 mg PO BID tablet 07/13/21 07/13/21 History release 24 hr semaglutide 1 mg/dose (4 mg/3 mL) 1 mg SUBCUT WEEKLY #9 ml 12/07/21 Rx subcutaneous pen injector ezetimibe 10 mg tablet 10 mg PO DAILY #90 tablet 07/15/21 Rx Laboratory Tests 07/20/21 06:47 POC Capillary Glucose 150 mg/dl H mg/dl (65-105) Patient hx anesthesia problems: none Family hx anesthesia problems: none Results Review: All pre-operative results and documents have been reviewed as part of the pre-operative evaluation. [facility] Past Medical History Medical History ADD (attention deficit disorder) Anxiety Arthritis BMI 32.0-32.9,adult BMI 33.0-33.9,adult BMI 34.0-34.9,adult BMI over 35 Colon cancer screening Crohn's disease Fatty liver Ganglion cyst of right foot Genital herpes in men History of [place] thyroiditis Hypothyroidism Metatarsal bone fracture Metatarsal stress fracture of left foot JO (obstructive sleep apnea) Prediabetes Psoriasis Psoriatic arthritis Pulmonary embolism Rotator cuff arthropathy of right shoulder Umbilical hernia Surgical History Surgical History H/O vasectomy History of appendectomy History of hernia repair History of right knee surgery History of shoulder surgery History of tonsillectomy Family History Family History Father Hypertension Cerebrovascular accident Mother Lung cancer COPD (chronic obstructive pulmonary disease) Emphysema of lung Sibling Hypertension Other Arthritis Asthma Diabetes mellitus Social History Social History Smoking status: Never smoker 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
--- NOTE | 2021-07-20 07:03 | WPDHPUPDATE1 ---
History and Physical Update Update Date/Time: 07/20/21 07:03 History and Physical has been reviewed, including an updated exam of the patient. There are NO changes in the patient's condition. Covid test negative. Risks, benefits, and alternatives have been discussed and questions answered. Patient agrees to proceed with procedure.
[2021-07-20] MEDS: ceFAZolin 2 GM/D5W 50 ML 2 GM/50 ML BAG IVPB (07:28)
[2021-07-20] MEDS: methylPREDNISolone ACETATE 40 MG/ML VIAL IM (07:40)
[2021-07-20] MEDS: LIDO 1%/EPINEPHRINE 1:100,000 50 ML VIAL 30 ML INFILTRATE (08:14)
--- NOTE | 2021-07-20 09:27 | W.PM.PROC2 ---
Procedure Note - Detailed Date of Procedure 07/20/21 Pre-op Diagnosis left foot 4th metatarsal fracture non union, right foot cyst, diabetes Post-op Diagnosis same Procedure Performed Open reduction internal fixation of left foot fracture nonunion, iliac crest bone graft aspirate, aspiration of right foot cyst Surgeon Sumit Leon MD Preconstruction Manager 1st orthodontic assistant Anesthesia general Indications 51-year-old gentleman with diabetes who sustained a left foot 4th metatarsal fracture complicated by nonunion. Fracture healing unable to be obtained with assistance of offloading, mobilization, bone stimulator. Presents for operative treatment with application of iliac crest bone marrow aspirate. In addition, noted to have right foot cyst with pain. Discussed aspiration of the cyst at the time of general anesthesia. 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 Right foot cyst aspirate consistent with ganglion. Description of Procedure What was done: Patient identified in the preoperative holding. Informed consent given. Operative extremity marked. Patient received intravenous antibiotics. Patient brought to the operating room where underwent general anesthetic by anesthesia team. Positioned supine on operating room table. Time-out performed confirming the patient, site of the surgery and the plan. Left and right foot prepped and draped usual sterile surgical fashion using a ChloraPrep skin solution. In addition, the left iliac crest, anterior was prepped and draped using ChloraPrep skin solution. 1% lidocaine with epinephrine used locally at the right foot proximal to the cyst. 18 gauge needle then used to aspirate the cyst. 1 cc of gelatinous material consistent with ganglion was removed. 40 mg of Depo-Medrol injected. Sterile dressing applied. Left pelvis then addressed. Anterior superior iliac spine was palpated. 2 cm posterior to this a stab incision was made with 15 blade knife. Blunt dissection carried down to the iliac crest. Local anesthetic with 0.5% Marcaine. Bone aspirate needle then placed through the cortex into the intramedullary canal of the pelvis. 60 cc of bone marrow aspirate was obtained and passed off for centrifuge. Wound irrigated and closed with 3-0 Monocryl subcuticular stitch and Steri-Strips. Sterile dressing applied. Left foot then addressed. Longitudinal incision made over the dorsum of the base of the 4th metatarsal with a 15 blade knife. Hemostasis controlled electrocautery. The branches of the sural nerve were identified and protected. Dissection carried down to the dorsum of the 4th metatarsal. This was freed up of scar tissue with a rongeur. The nonunion site was identified. This was debrided with osteotome and rongeur. K-wires were used to penetrate to the bone proximal and distal to the nonunion to provide good blood flow. Image intensification used to confirm our location and plane of the nonunion. The bone marrow aspirate was then mixed with demineralized bone matrix and the putty was packed into the nonunion site as well as local bone. Fixation was then achieved with a dorsal double compression 2.4 mm plate with 6 cortices proximal and distal to the nonunion site. Image intensification confirmed placement. Deep tissue closed with 3-0 Monocryl interrupted suture. Wound then irrigated and the superficial tissue closed with 3-0 Monocryl interrupted suture and 4-0 nylon running suture. Sterile dressing applied. The patient was then woken from anesthesia, extubated and taken to the recovery room in stable condition. All sponge, needle, instrument counts were correct at the end of the case. Implants Arthrex 2.4 mm double compression plate with 2.4 mm screws. Estimated Blood Loss -65.0 Tourniquet Time 60 Drains No Packing No Pathology none sent Complications None Condition stable Disposition PACU
--- NOTE | 2021-07-20 09:44 | SUR.PREOP ---
2783 PT STATES HE HAS CRUTHCES AT HOME TO USE. DENIES ANY QUESTIONS
[2021-07-20 09:59] LABS: Glucose Point of Care 202 mg/dl (65-105)
[2021-07-20] MEDS: oxyCODONE HCL (*CRX) 5 MG TAB IR PO (11:04)
== END 2021-07-20 11:40 | disposition home or self-care (01) ==
PROVIDERS: PCP Family Medicine; Visit Provider Orthopaedic Surgery
PROC: (CPT 28485; principal; 2021-07-20 07:30)
DX: S92.342K Displaced fracture of fourth metatarsal bone, left foot, subsequent encounter for fracture with nonunion (principal); M67.471 Ganglion, right ankle and foot; E11.9 Type 2 diabetes mellitus without complications; E03.9 Hypothyroidism, unspecified; G47.33 Obstructive sleep apnea (adult) (pediatric); L40.50 Arthropathic psoriasis, unspecified; K50.90 Crohn's disease, unspecified, without complications; F41.9 Anxiety disorder, unspecified; F98.8 Other specified behavioral and emotional disorders with onset usually occurring in childhood and adolescence; K76.0 Fatty (change of) liver, not elsewhere classified; Z86.711 Personal history of pulmonary embolism; E66.9 Obesity, unspecified; Z68.35 Body mass index [BMI] 35.0-35.9, adult; Z79.01 Long term (current) use of anticoagulants; Z79.84 Long term (current) use of oral hypoglycemic drugs; Z79.899 Other long term (current) drug therapy
CPT/HCPCS: 28485; 38232; 20612; 82948; A9270; J0690; J1030; J1100; J1170; J1885; J2250; J2405; J2704; J3010; J7120

== ENCOUNTER 2021-09-03 16:11 | Outpatient (CLI) | payer BC, SELFPAY ==
[2021-09-03 18:44] LABS: Hepatitis B Surface Antigen Negative (Negative)
[2021-09-03 18:49] LABS: HAV RESULT Negative (Negative); Hepatitis B Core IgM Result Negative (Negative)
[2021-09-03 19:01] LABS: Hepatitis C Virus Antibody Negative (Negative)
[2021-09-08 10:11] LABS: Ceruloplasmin 32 mg/dL (18-36)
[2021-09-08 22:53] LABS: Mitochondrial (M2) Ab (IgG) <=20.0 U (<=20.0)
[2021-09-10 13:31] LABS: ALT 77 U/L (9-46); Alpha-2-Macroglobulin 216 mg/dL (106-279); Apolipoprotein A1 131 mg/dL (94-176); Fibrosis Score 0.28; Fibrosis Stage F1; GGT 61 U/L (3-95); Haptoglobin 187 mg/dL (43-212); Necroinflammat Act Grade A1-A2; Total Bilirubin 0.4 mg/dL (0.2-1.2)
== END 2021-09-03 16:12 | disposition home or self-care (01) ==
LOC: ANHLAB 16:12
PROVIDERS: PCP Family Medicine; Visit Provider Internal Medicine Gastroenterology
DX: K76.0 Fatty (change of) liver, not elsewhere classified (principal); R74.8 Abnormal levels of other serum enzymes
CPT/HCPCS: 36415; 80074; 81596; 82104; 82390; 82728; 83520; 86038

== ENCOUNTER 2022-07-30 09:45 | Outpatient (CLI) | payer BC, SELFPAY ==
--- NOTE | ~2022-07-30 | US_ITS ---
Abdominal Sonogram: Real-time sonographic imaging of the abdomen was performed. Clinical History: Abnormal serum levels Findings: The liver appears echogenic, with no evidence of mass lesion or bile duct dilatation. Main portal vein demonstrates normal direction of flow. The spleen is normal in size without evidence of focal lesion. The gallbladder is partially distended, but appears normal with no evidence of gallsto ne or wall thickening. The common bile duct measures 3 mm. The visualized pancreas, aorta, and IVC a re unremarkable. The right kidney measures 12.0 cm in length and the left kidney measures 13.3 cm. There is no hydronephrosis or renal calculus. Impression: Diffuse fatty infiltration of the liver. Reviewed, dictated and finalized at location M. TRIC TRUCK DRIVER Impression: Diffuse fatty infiltration of the liver.
--- NOTE | ~2022-07-30 | US_ITS ---
Thyroid ultrasound. Clinical History: Hypothyroidism Findings: Real-time sonography of the thyroid gland was performed. The right lobe measures 5.0 x 2.1 x 1.9 cm. The left lobe measures 4.4 x 1.4 x 1.2 cm. The isthmus is 6 mm in AP diameter. Thyroid parenchyma is heterogeneous, without definite discrete nodule. Impression: Heterogeneous thyroid gland, without discrete nodule. Consider nuclear medicine thyroid uptake scan a s indicated. Reviewed, dictated and finalized at location M. Y SUPERVISOR Impression: Heterogeneous thyroid gland, without discrete nodule. Consider nuclear medicine thyroid uptake scan as indicated.
== END 2022-07-30 09:46 | disposition home or self-care (01) ==
PROVIDERS: PCP Family Medicine; Visit Provider Nurse Practitioner Family
DX: K76.0 Fatty (change of) liver, not elsewhere classified (principal); R74.8 Abnormal levels of other serum enzymes; E03.9 Hypothyroidism, unspecified
CPT/HCPCS: 76536; 76700

== ENCOUNTER 2022-09-09 09:40 | Outpatient (RCR) | payer BC, SELFPAY ==
[2022-09-09 09:51] VITALS: BMI 31.8
[2022-09-09 10:38] VITALS: BMI 31.8
== END 2022-11-26 16:02 | disposition home or self-care (01) ==
LOC: ANHDMC 09:40
PROVIDERS: PCP Family Medicine; Visit Provider Internal Medicine Endocrinology, Diabetes & Metabolism
DX: E11.65 Type 2 diabetes mellitus with hyperglycemia (principal); Z71.3 Dietary counseling and surveillance; Z71.89 Other specified counseling
CPT/HCPCS: 97802; G0108

== ENCOUNTER 2024-04-03 09:33 | Outpatient (CLI) | payer BC, SELFPAY ==
--- NOTE | ~2024-04-03 | MR_ITS ---
EXAMINATION: MR brain/brain stem wo/w con DATE: 04/03/2024 10:42 INDICATION: New daily headaches. TECHNIQUE: Magnetic resonance imaging (MRI) of the brain and brainstem was performed without and with 20 mL MultiHance intravenous contrast. COMPARISON: None. FINDINGS: There is no intracranial hemorrhage, acute infarction, or abnormal intracranial mass lesion . There is a focus of increased T2-weighted signal intensity in the right frontal lobe deep white mat ter which is normal as an isolated finding. The ventricles are normal in size. There is mild mucosal thickening in the ethmoid sinuses. The orbits are normal. The mastoid air cells are normal. IMPRESSION: 1. Normal brain. Reviewed, dictated and finalized at location A. IMPRESSION: 1. Normal brain.
--- NOTE | ~2024-04-03 | MR_ITS ---
EXAMINATION: MR orbits face neck wo/w con DATE: 04/03/2024 10:42 INDICATION: Generalized headache. Sinus pressure. TECHNIQUE: Magnetic resonance imaging (MRI) of the face, orbits, and paranasal sinuses was performed without and with 20 mL MultiHance intravenous contrast. COMPARISON: None. FINDINGS: There is mild mucosal thickening in the ethmoid sinuses. The orbits are normal. The extraoc ular muscles, ocular globes, and optic nerves are normal. There is no abnormal mass. The mastoid air cells are normal. IMPRESSION: 1. Mild mucosal thickening in the ethmoid sinuses. Reviewed, dictated and finalized at location A.
== END 2024-04-03 09:34 ==
LOC: MICIMG 09:34
PROVIDERS: PCP Family Medicine; Visit Provider Internal Medicine Endocrinology, Diabetes & Metabolism
DX: G44.52 New daily persistent headache (NDPH) (principal); J32.2 Chronic ethmoidal sinusitis
CPT/HCPCS: 70543; 70553; A9577

== ENCOUNTER 2024-04-26 02:06 | Day surgery (SDC) | payer BC, SELFPAY ==
[2024-04-02 12:52] VITALS: BMI 30.2
--- NOTE | 2024-04-26 08:54 | WPDANESEPPF ---
Anes - Initial Pre Proc Eval Procedure: Operation Date: 04/26/24 10:00 Proposed Procedures p Colonoscopy - Ritesh Montanez MD Date/Time: 04/26/24 08:54 Surgeon: Ritesh Montanez MD Pre Op Diagnosis: Hemorrhage anus/rectum Crohn's disease w/o comp. Patient Data Age: 53 Gender: M Height: 1.83 m Weight: 100.9 kg Allergies Allergy/AdvReac Type Severity Reaction Status Date / Time No Known Allergies Allergy Verified 04/26/24 08:51 Home Medications Medication Instructions Recorded Confirmed Type etanercept 50 mg/mL (1 mL) 50 mg subcut WEEKLY 09/10/19 04/06/24 History subcutaneous pen injector (Enbrel SureClick) semaglutide 1 mg/dose (4 mg/3 mL) 1 mg (0.75 mL) subcut WEEKLY #9 mL 11/12/22 04/06/24 Rx subcutaneous pen injector (Ozempic) ezetimibe 10 mg tablet (Zetia) 10 mg PO DAILY #90 tabs 06/22/23 04/06/24 Rx omeprazole 20 mg capsule,delayed See Rx Instructions .Route 01/12/24 04/06/24 Rx release .COMPLEX #90 caps valacyclovir 500 mg tablet 500 mg PO DAILY #90 tabs 01/12/24 04/06/24 Rx (Valtrex) hydrocortisone 2.5 % topical cream 1 applic RECTAL BID PRN 02/17/24 04/06/24 Rx with perineal applicator hemorrhoids #30 grams multivitamin (Daily Multi-Vitamin 1 tablet PO DAILY 02/17/24 04/06/24 History tablet) atorvastatin 20 mg tablet (Lipitor) 20 mg PO EVERY OTHER DAY 04/02/24 04/06/24 History dapagliflozin propanediol 10 mg 10 mg PO DAILY 04/02/24 04/06/24 History tablet (Farxiga) levothyroxine 100 mcg tablet 125 mcg PO DAILY 04/02/24 04/06/24 History metformin 500 mg tablet,extended 1,000 mg PO DAILY 04/02/24 04/06/24 History release 24 hr viloxazine 200 mg capsule,extended 200 mg PO DAILY 04/02/24 04/06/24 History release 24 hr (Qelbree) amlodipine 10 mg tablet See Rx Instructions .Route 04/06/24 04/06/24 Rx .COMPLEX #90 tabs escitalopram oxalate 20 mg tablet 20 mg PO DAILY 04/06/24 04/06/24 History (Lexapro) leflunomide 20 mg tablet 20 mg PO DAILY 04/06/24 04/06/24 History Patient hx anesthesia problems: none Family hx anesthesia problems: none Results Review: All pre-operative results and documents have been reviewed as part of the pre-operative evaluation. [facility] Past Medical History Medical History ADD (attention deficit disorder) Anxiety Arthritis Colon cancer screening COVID-19 Crohn's disease Elevated liver enzymes Encounter for postoperative care Fatigue Fatty liver Fatty liver disease, nonalcoholic Flushing Ganglion cyst of right foot Genital herpes in men History of [place] thyroiditis Hypothyroidism Metatarsal bone fracture Metatarsal stress fracture of left foot JO (obstructive sleep apnea) Prediabetes Psoriasis Psoriatic arthritis Pulmonary embolism Rectal bleeding Rotator cuff arthropathy of right shoulder Umbilical hernia Surgical History Surgical History H/O bone graft H/O foot surgery H/O vasectomy History of appendectomy History of hernia repair History of right knee surgery History of shoulder surgery History of tonsillectomy Family History Family History Father Hypertension Cerebrovascular accident Mother Lung cancer COPD (chronic obstructive pulmonary disease) Emphysema of lung Sibling Hypertension Other Arthritis Asthma Diabetes mellitus Social History Social History Smoking status: Never smoker 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
[2024-04-26 09:17] VITALS: BP 120/75; PULSE 105; RESP 18; TEMP 35.9; O2SAT 100; BMI 28.4
[2024-04-26] MEDS: LACTATED RINGERS 1,000 ML 150 ML IV CONT (09:31)
--- NOTE | 2024-04-26 09:57 | PM.HPGS ---
History of Present Illness History of Present Illness Consent: Risks, benefits, and alternatives have been discussed and questions answered. Patient agrees to proceed with procedure. Chief complaint: Hemorrhage anus/rectum Crohn's disease w/o comp. Narrative: Paul Vail is a 53 year old male with intermittent rectal bleeding, last colonoscopy ~ 4 years ago Review of Systems Review of Systems: All systems reviewed & are unremarkable except as noted in HPI and below PMFSH Past Medical History Medical History ADD (attention deficit disorder) Anxiety Arthritis Colon cancer screening COVID-19 Crohn's disease Elevated liver enzymes Encounter for postoperative care Fatigue Fatty liver Fatty liver disease, nonalcoholic [place] Ganglion cyst of right foot Genital herpes in men History of [place] thyroiditis Hypothyroidism Metatarsal bone fracture Metatarsal stress fracture of left foot JO (obstructive sleep apnea) Prediabetes Psoriasis Psoriatic arthritis Pulmonary embolism Rectal bleeding Rotator cuff arthropathy of right shoulder Umbilical hernia Surgical History Surgical History H/O bone graft H/O foot surgery H/O vasectomy History of appendectomy History of hernia repair History of right knee surgery History of shoulder surgery History of tonsillectomy Family History Family History Father Hypertension Cerebrovascular accident Mother Lung cancer COPD (chronic obstructive pulmonary disease) Emphysema of lung Sibling Hypertension Other Arthritis Asthma Diabetes mellitus Social History Social History Smoking status: Never smoker 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using Concerned About Future Housing: No Difficulty Paying Gas/Electric Bills: No Difficulty Paying for Meds: No Currently Unemployed: No Education: Associate Degree Difficulty w/ Childcare or Family Care: No Living arrangements: with family Occupation/Education: occupation Additional occupation/education comments: [employer] Gender identity (if verbalized by the patient): Male Spiritual care concerns: No Meds Home Medications and Allergies Home Medications Medication Instructions Recorded Confirmed Type etanercept 50 mg/mL (1 mL) 50 mg subcut WEEKLY 09/10/19 04/26/24 History subcutaneous pen injector (Enbrel SureClick) semaglutide 1 mg/dose (4 mg/3 mL) 1 mg (0.75 mL) subcut WEEKLY #9 mL 11/12/22 04/26/24 Rx subcutaneous pen injector (Ozempic) ezetimibe 10 mg tablet (Zetia) 10 mg PO DAILY #90 tabs 06/22/23 04/26/24 Rx omeprazole 20 mg capsule,delayed See Rx Instructions .Route 01/12/24 04/26/24 Rx release .COMPLEX #90 caps valacyclovir 500 mg tablet 500 mg PO DAILY #90 tabs 01/12/24 04/26/24 Rx (Valtrex) hydrocortisone 2.5 % topical cream 1 applic RECTAL BID PRN 02/17/24 04/26/24 Rx with perineal applicator hemorrhoids #30 grams multivitamin (Daily Multi-Vitamin 1 tablet PO DAILY 02/17/24 04/26/24 History tablet) atorvastatin 20 mg tablet (Lipitor) 20 mg PO EVERY OTHER DAY 04/02/24 04/26/24 History dapagliflozin propanediol 10 mg 10 mg PO DAILY 04/02/24 04/26/24 History tablet (Farxiga) levothyroxine 100 mcg tablet 125 mcg PO DAILY 04/02/24 04/26/24 History metformin 500 mg tablet,extended 1,000 mg PO DAILY 04/02/24 04/26/24 History release 24 hr viloxazine 200 mg capsule,extended 200 mg PO DAILY 04/02/24 04/26/24
[2024-04-26 10:16] VITALS: BP 98/52; PULSE 72; RESP 16; O2SAT 100
[2024-04-26 10:26] VITALS: BP 112/70; PULSE 68; RESP 14; O2SAT 100
[2024-04-26 10:36] VITALS: BP 119/79; PULSE 64; RESP 12; O2SAT 97
[2024-04-26 10:49] LABS: Glucose Point of Care 139 mg/dl (65-105)
== END 2024-04-26 10:42 | disposition home or self-care (01) ==
PROVIDERS: PCP Family Medicine; Referring Provider Nurse Practitioner Family; Visit Provider Internal Medicine Gastroenterology
PROC: 0DJD8ZZ Inspection of Lower Intestinal Tract, Via Natural or Artificial Opening Endoscopic (ICD-10-PCS; CPT 45378; principal; 2024-04-26 10:00)
DX: K64.8 Other hemorrhoids (principal); K50.90 Crohn's disease, unspecified, without complications; E03.9 Hypothyroidism, unspecified; G47.33 Obstructive sleep apnea (adult) (pediatric); L40.9 Psoriasis, unspecified; F98.8 Other specified behavioral and emotional disorders with onset usually occurring in childhood and adolescence; E66.9 Obesity, unspecified; Z68.28 Body mass index [BMI] 28.0-28.9, adult; Z79.85 Long-term (current) use of injectable non-insulin antidiabetic drugs; Z79.84 Long term (current) use of oral hypoglycemic drugs; Z98.890 Other specified postprocedural states; Z86.711 Personal history of pulmonary embolism; Z80.1 Family history of malignant neoplasm of trachea, bronchus and lung; Z82.49 Family history of ischemic heart disease and other diseases of the circulatory system
CPT/HCPCS: 45378; 82948; J2704; J7120

== ENCOUNTER 2024-10-26 09:20 | Outpatient (CLI) | payer BC, SELFPAY ==
--- NOTE | ~2024-10-26 | CT_ITS ---
Non-contrast CT scan of the Abdomen Clinical indication: Disorder adrenal gland Technique: 2.5 mm axial scans were obtained through the abdomen without intravenous or oral contrast . Dose reduction technique was used on this scan by utilizing automated exposure control and iterativ e reconstruction technique. The dose-length product (DLP) was 695.81 mGy-cm. Findings: Images through the lung bases reveal no abnormalities. There is no evidence of renal or ureteral calculi. The kidneys and the ureters are nondilated. The liver, spleen, gallbladder, and adrenals appear normal. There is a 4.7 x 2.7 mass the pancreatic tail. There is no aortic aneurysm. Visualized bowel loops are unremarkable. No ascites. Impression: 4.7 x 2.7 cm pancreatic tail mass. This is somewhat indeterminate based on this exam, with differenti al diagnosis including both benign and malignant lesions. Further evaluation with pancreatic mass pro tocol CT or MR advised. No abnormality of the adrenal glands identified. Reviewed, dictated and finalized at [facility]. Impression: 4.7 x 2.7 cm pancreatic tail mass. This is somewhat indeterminate based on this exam, with differential diagnosis including both benign and malignant lesions. Further evaluation with pancreatic mass protocol CT or MR advised. No abnormality of the adrenal glands identified.
--- NOTE | ~2024-10-26 | US_ITS ---
US thyroid INDICATION: Dysphasia and enlarged thyroid. TECHNIQUE: Real-time sonographic images of the thyroid gland were obtained. COMPARISON: Thyroid nodule FINDINGS: The right thyroid lobe measures 5 x 2.1 4.6 x 1.5 x 2 cm. The left thyroid lobe measures 3 .2 x 1.2 x 1.2 cm. There is normal echotexture and echogenicity throughout the thyroid gland. There i s a small hypoechoic left thyroid mass which is a spongiform appearance, wider than tall, ill-defined margins and no internal echogenic foci, TR 2, likely benign. This mass measures 7 mm. No discrete ma ss is identified in the left lobe. Normal vascular flow is present. IMPRESSION: 1. Probable benign 7 mm right thyroid mass, TR2, not suspicious. Reviewed, dictated and finalized at location B.
--- NOTE | ~2024-10-26 | MR_ITS ---
EXAMINATION: MR brain/brain stem wo/w con DATE: 10/26/2024 10:10 INDICATION: Pituitary abnormality. TECHNIQUE: Magnetic resonance imaging (MRI) of the brain and brainstem was performed without and with 20 mL ProHance intravenous contrast. COMPARISON: Brain MRI 04/03/2024 FINDINGS: The pituitary is normal in size with height of 6 mm and concave superior margin. There is n o intracranial hemorrhage, acute infarction, or abnormal intracranial mass lesion. The ventricles are normal in size. The orbits are normal. The paranasal sinuses are clear. The mastoid air cells are no rmal. IMPRESSION: 1. Normal brain. Normal pituitary. Reviewed, dictated and finalized at location A.
== END 2024-10-26 09:21 | disposition home or self-care (01) ==
LOC: MICIMG 09:21
PROVIDERS: PCP Family Medicine; Visit Provider Internal Medicine Endocrinology, Diabetes & Metabolism
DX: E27.9 Disorder of adrenal gland, unspecified (principal); E04.1 Nontoxic single thyroid nodule
CPT/HCPCS: 70553; 74150; 76536; A9579